=== PATIENT | female | born 1940 | race Caucasian/White ===

== ENCOUNTER 2023-02-21 08:57 | Inpatient (IN) | payer MEDICARE ==
[~2023-02-21] VITALS: Ht 172.7 cm; Wt 80.0 kg
[~2023-02-21 08:57] MED LIST: ACET-1008 PO; AMLO5TAB PO; ATOR10TA70 PO; BUSP10TA11 PO; CHOL10008 PO; DEXT38GE12 PO; DOCU100C40 PO; DULO60CA59 PO; HYDR-3965 PO; HYDR-4069 PO; LABE100T8 PO; LACTC PO; LIDO1ADH78 TP
[2023-02-21 10:47] LABS: BASOPHILS % (AUTO) 0.2 % (0-1); EOSINOPHILS % (AUTO) 0.2 % (0-6); HEMATOCRIT 32.2 % (35.0-45.0); HEMOGLOBIN 10.7 g/dl (12.0-16.0); LYMPHOCYTES # (AUTO) 0.5 X10'3 (1.1-4.8); LYMPHOCYTES % (AUTO) 9.1 % (21-51); MEAN CORPUSCULAR HEMOGLOBIN 29.4 PG (27.0-31.0); MEAN CORPUSCULAR HGB CONC 33.2 g/dL (33.0-36.5); MEAN CORPUSCULAR VOLUME 88.3 FL (78-98); MONOCYTES # (AUTO) 0.6 X10'3 (0-0.9); NEUTROPHILS # (AUTO) 4.6 X10'3 (1.8-7.7); NEUTROPHILS % (AUTO) 80.5 % (42-75); PLATELET COUNT 213 X10'3 (140-440); RED BLOOD COUNT 3.64 X10'6 (4.20-5.60); RED CELL DISTRIBUTION WIDTH 14.8 % (11.5-14.5); WHITE BLOOD COUNT 5.7 X10'3 (4.5-11.0)
--- NOTE | 2023-02-21 10:55 | NUR ---
PT STATED SHE WANTED TO BECAUSE SHE DOESNT WANT TO GET COVID AND GIVE IT TO HER FAMILY. PT STATED EVERYONE AT HER HOME HAS COVID. PT STAFF REPORTS NO CURRENT COVID RESIDENTS AND STATED HER FACILITY HAS STARTED ROUTINE COVID TESTING ON ALL RESIDENTS.
[2023-02-21 11:03] LABS: ALANINE AMINOTRANSFERASE 21 U/L (12-78); ALBUMIN 3.5 G/DL (3.4-5.0); ALBUMIN/GLOBULIN RATIO 0.9 (1.1-1.5); ALKALINE PHOSPHATASE 90 IU/L (46-116); ANION GAP 7 (8-16); ASPARTATE AMINO TRANSFERASE 25 U/L (10-37); BILIRUBIN,TOTAL 0.2 MG/DL (0.1-1.0); BLOOD UREA NITROGEN 27 MG/DL (7-18); BUN/CREATININE RATIO 21.8 (10.0-20.0); CALCIUM 9.6 MG/DL (8.5-10.1); CHLORIDE 98 MMOL/L (99-107); CREATININE 1.24 MG/DL (0.40-0.90); GLUCOSE 353 MG/DL (70-104); POTASSIUM 3.8 MMOL/L (3.5-5.1); SODIUM 138 MMOL/L (135-145); TOTAL CARBON DIOXIDE 33.5 MMOL/L (24-32); TOTAL PROTEIN 7.2 G/DL (6.4-8.2); eCRCL 34 ML/MIN; eGFR 41 ML/MIN
--- NOTE | 2023-02-21 11:20 | NUR ---
SPOKE W/ PT NURSE [place] AT [facility].PT ON 2 LTRS O2 NC AT BASELINE. PER STAFF NURSE PT DEVELOPED COUGH TODAY AND THEY ALSO NOTICED RHONCHI ON RIGHT SIDE. ED MD NOTIFIED. RECEIVED VERBAL ORDER FOR CXR.
--- NOTE | 2023-02-21 11:22 | NUR ---
PT HAD NEG [facility] TEST AT [facility].
[2023-02-21 11:26] LABS: THYROID STIMULATING HORMONE 1.29 ulU/ml (0.34-4.50)
[2023-02-21 11:32] LABS: ETHANOL < 10 MG/DL (<10)
[2023-02-21 12:17] LABS: BILIRUBIN,URINE NEGATIVE (Neg); CLARITY,URINE CLOUDY (Clear); COLOR,URINE YELLOW (Yellow); GLUCOSE, URINE 500 mg/dl (Neg); KETONES,URINE NEGATIVE (Neg); LEUKOCYTE ESTERASE ,URINE MODERATE (Neg); NITRITES, URINE NEGATIVE (Neg); OCCULT BLOOD,URINE MODERATE (Neg); PROTEIN,URINE 30 mg/dl (Neg); UROBILINOGEN,URINE 0.2 E.U/dL (0.2-1.0)
[2023-02-21 12:20] LABS: UA COLLECTION TYPE STRAIGHT CATH
[2023-02-21 12:26] LABS: BACTERIA,URINE 2+ /HPF (Neg); MUCUS STRANDS NONE SEEN /LPF (Neg); SQUAMOUS EPITHELIAL CELL,UR MODERATE /LPF (FEW); WBC CLUMPS,URINE FEW /HPF (NEGATIVE); WBC,URINE TNTC /HPF (0-4)
[2023-02-21 12:30] LABS: URINE AMPHETAMINE SCREEN NEGATIVE (Neg); URINE BARBITUATE SCREEN NEGATIVE (Neg); URINE BENZODIAZEPINES SCREEN NEGATIVE (Neg); URINE CANNABINOID SCREEN NEGATIVE (Neg); URINE COCAINE SCREEN NEGATIVE (Neg); URINE METHADONE SCREEN NEGATIVE (Neg); URINE OPIATE SCREEN POSITIVE (Neg); URINE PHENCYCLIDINE SCREEN NEGATIVE (Neg)
[2023-02-21] MEDS ORDERED: levoFLOXACIN-Levaquin 500mg/D5 100 ML IV ONE (12:55)
[2023-02-21] MEDS ORDERED: normal saline 1000ML IV soln IVB ONE (12:55)
[2023-02-21] MEDS ORDERED: LANTUS SQ (13:23)
[2023-02-21] MEDS ORDERED: MELA1LIQ PO (13:23)
[2023-02-21] MEDS ORDERED: INSU100V9 SQ (13:24)
[2023-02-21] MEDS ORDERED: MELA3TAB39 PO (13:28)
[2023-02-21] MEDS ORDERED: IBUP-1984 PO (13:30)
[2023-02-21] MEDS ORDERED: POLY17PO26 PO (13:32)
[2023-02-21] MEDS ORDERED: QUET100T34 PO (13:33)
[2023-02-21] MEDS ORDERED: LOSA1TAB39 PO (13:34)
[2023-02-21] MEDS ORDERED: HYDROcodone/acetaminophen 5mg/325mg tablet PO PRN ×2 (13:50→18:25)
[2023-02-21] MEDS: normal saline 1000ml 1,000 ML IV SCH ×2 (13:50→23:50)
[2023-02-21] MEDS ORDERED: magnesium Cl slow-release 64mg tablet PO PRN (13:50)
[2023-02-21] MEDS ORDERED: ondansetron/PF 4mg/2ml inj IV PRN (13:50)
[2023-02-21] MEDS ORDERED: ondansetron 4mg rapidly disintigrating tab PO PRN (13:50)
[2023-02-21] MEDS ORDERED: bisacodyl 10mg suppository rectal RC PRN (13:50)
[2023-02-21] MEDS ORDERED: potassium Cl 20 mEq SR tablet PO PRN ×2 (13:50)
[2023-02-21] MEDS ORDERED: mag hydrox/Alum hydrox/simeth 30ml oral suspension PO PRN (13:50)
[2023-02-21] MEDS ORDERED: magnesium hydroxide 30ml (MOM) UD suspension PO PRN (13:50)
[2023-02-21] MEDS ORDERED: acetaminophen 325mg tablet PO PRN ×2 (13:50)
[2023-02-21] MEDS ORDERED: potassium Cl 40MEQ/1/2NS 520ml 520 ML IV PRN (13:50)
[2023-02-21] MEDS ORDERED: acetaminophen 650mg rectal suppository RC PRN (13:50)
[2023-02-21] MEDS ORDERED: magnesium 4gm in 100ml NS 100 ML IV PRN (13:50)
[2023-02-21] MEDS ORDERED: magnesium 2GM in 50ml NS 50 ML IV PRN (13:50)
[2023-02-21] MEDS ORDERED: VANCOmycin 2,000MG in NS 500ml IV soln IV ONE (14:30)
[2023-02-21] MEDS: HYDROcodone/acetaminophen 10/325mg tab PO PRN ×2 (14:43→19:02)
--- NOTE | 2023-02-21 14:50 | NUR ---
NORCO 10/325 MG PO ADMIN FOR PAIN 03/05 CHEST DISCOMFORT PT ENDORSED " THIS COUGH IS WHY MY CHEST HURTS ALL THE TIME"
[2023-02-21] MEDS: cefepime 1GM/NS ADD-VANTAGE 100 ML IV SCH (15:16)
[2023-02-21 16:59] LABS: MAGNESIUM 1.7 MG/DL (1.5-2.4)
--- NOTE | 2023-02-21 17:20 | NUR ---
BLOOD SUGAR CHECK RANDOMLY 190 AT PRESENT TIME. IV VANCO CONTINUES TO INFUSE NO RXTN NOTED
[2023-02-21] MEDS ORDERED: hydrALAZINE 25 MG tablet PO PRN (18:25)
[2023-02-21] MEDS: K and/or MAG REPLACEMENT MC SCH (20:00)
--- NOTE | 2023-02-21 20:15 | NUR ---
Primary RN relieved for lunch break. Patient resting comfortably in bed, no signs of distress. No needs at this time.
--- NOTE | 2023-02-21 21:19 | NUR ---
Call to Pharmacy regarding patient meds not in [facility], per Pharmacist they are "preparing lantus".
--- NOTE | 2023-02-21 21:35 | NUR ---
pATIENT BRIEF CHANGED, PERICARE COMPLETE, PURE WICK REINFORCED. PATIENT ON NEW LINENS AND PROVIDED WARM BALNKETS WELL PERSONAL BLANKET.
[2023-02-21] MEDS: docusate sod 100mg capsule PO SCH (21:36)
[2023-02-21] MEDS: quetiapine 100mg tablet PO SCH (21:36)
[2023-02-21] MEDS: atorvastatin 10mg tablet PO SCH (21:36)
[2023-02-21] MEDS: Melatonin 3mg tablet PO SCH (21:37)
[2023-02-21] MEDS: busPIRone 5mg tablet PO SCH (21:37)
[2023-02-21] MEDS: enoxaparin 40mg/0.4ml syringe SQ SCH (21:38)
[2023-02-21] MEDS: labetalol 100mg tablet PO SCH (21:45)
[2023-02-21] MEDS: insulin glargine (Lantus) pen - multi-dose SQ SCH (21:47)
--- NOTE | 2023-02-22 00:53 | NUR ---
requested iv meds to be given by rn
[2023-02-22] MEDS: cefepime 1GM/NS ADD-VANTAGE 100 ML IV SCH ×3 (02:03→20:47)
[2023-02-22] MEDS: HYDROcodone/acetaminophen 10/325mg tab PO PRN ×2 (04:18→10:33)
--- NOTE | 2023-02-22 05:56 | NUR ---
pull out own iv. iv was complete and intact md beaver
[2023-02-22 07:00] VITALS: BP 152/69; PULSE 71; RESP 22; TEMP 98.8; O2SAT 98
[2023-02-22 07:07] LABS: BASOPHILS % (AUTO) 0.2 % (0-1); EOSINOPHILS % (AUTO) 0.2 % (0-6); HEMATOCRIT 31.7 % (35.0-45.0); HEMOGLOBIN 10.6 g/dl (12.0-16.0); LYMPHOCYTES # (AUTO) 0.8 X10'3 (1.1-4.8); LYMPHOCYTES % (AUTO) 15.4 % (21-51); MEAN CORPUSCULAR HEMOGLOBIN 29.3 PG (27.0-31.0); MEAN CORPUSCULAR HGB CONC 33.4 g/dL (33.0-36.5); MEAN CORPUSCULAR VOLUME 87.7 FL (78-98); MONOCYTES # (AUTO) 0.7 X10'3 (0-0.9); MONOCYTES % (AUTO) 13.5 % (2-12); NEUTROPHILS # (AUTO) 3.7 X10'3 (1.8-7.7); NEUTROPHILS % (AUTO) 70.7 % (42-75); PLATELET COUNT 217 X10'3 (140-440); RED BLOOD COUNT 3.61 X10'6 (4.20-5.60); RED CELL DISTRIBUTION WIDTH 14.3 % (11.5-14.5); WHITE BLOOD COUNT 5.3 X10'3 (4.5-11.0)
--- NOTE | 2023-02-22 07:10 | NUR ---
Patient in room ED 15. I have received report from Stacy [facility] DIRECTOR and had the opportunity to ask questions and assume patient care.
--- NOTE | 2023-02-22 07:10 | NUR ---
report given to YANDEL Mckinnon, pt assigned room 3023 B, RN aware pt is already on hospital bed.
[2023-02-22 07:45] LABS: ALANINE AMINOTRANSFERASE 27 U/L (12-78); ALBUMIN 3.3 G/DL (3.4-5.0); ALBUMIN/GLOBULIN RATIO 0.9 (1.1-1.5); ALKALINE PHOSPHATASE 78 IU/L (46-116); ANION GAP 2 (8-16); ASPARTATE AMINO TRANSFERASE 24 U/L (10-37); BILIRUBIN,TOTAL 0.3 MG/DL (0.1-1.0); BLOOD UREA NITROGEN 18 MG/DL (7-18); BUN/CREATININE RATIO 19.1 (10.0-20.0); CALCIUM 9.5 MG/DL (8.5-10.1); CHLORIDE 98 MMOL/L (99-107); CREATININE 0.94 MG/DL (0.40-0.90); GLUCOSE 149 MG/DL (70-104); MAGNESIUM 1.5 MG/DL (1.5-2.4); POTASSIUM 3.6 MMOL/L (3.5-5.1); SODIUM 136 MMOL/L (135-145); TOTAL PROTEIN 7.1 G/DL (6.4-8.2); eCRCL 45 ML/MIN; eGFR 57 ML/MIN
[2023-02-22 08:00] VITALS: RESP 22; O2SAT 95
[2023-02-22] MEDS: K and/or MAG REPLACEMENT MC SCH ×2 (08:00→20:00)
[2023-02-22] MEDS: azithromycin/NS 500mg/250ml 250 ML IV SCH (08:07)
[2023-02-22] MEDS: LIDOcaine 5% patch TP SCH ×2 (08:08→20:08)
[2023-02-22] MEDS: insulin glargine (Lantus) pen - multi-dose SQ SCH ×2 (08:11→22:15)
[2023-02-22] MEDS: busPIRone 5mg tablet PO SCH ×3 (08:11→20:58)
[2023-02-22] MEDS: polyethylene glycol 3350 17gm powd pack PO SCH (08:12)
[2023-02-22] MEDS: docusate sod 100mg capsule PO SCH ×2 (08:12→20:48)
[2023-02-22] MEDS: quetiapine 100mg tablet PO SCH ×2 (08:13→21:08)
[2023-02-22] MEDS: duloxetine 30mg CAPSULE.DR PO SCH (08:13)
[2023-02-22] MEDS: HYDROchlorothiazide 25mg tablet PO SCH (08:13)
[2023-02-22] MEDS: amLODIPine 5mg tablet PO SCH (08:13)
[2023-02-22] MEDS: normal saline 1000ml 1,000 ML IV SCH ×2 (08:14→22:00)
[2023-02-22] MEDS: labetalol 100mg tablet PO SCH ×2 (08:14→21:08)
[2023-02-22] MEDS: losartan 50mg tablet PO SCH (08:14)
[2023-02-22 11:00] VITALS: BP 98/41; PULSE 69; RESP 27; TEMP 97.8; O2SAT 95
[2023-02-22] MEDS ORDERED: cefepime 1GM/NS ADD-VANTAGE 100 ML IV SCH (13:16)
[2023-02-22] MEDS ORDERED: VANCOMYCIN 750MG IV in NS 250 ML IV SCH (15:00)
[2023-02-22] MEDS ORDERED: vancomycin/NS 1 GM ADD-VANTAGE 250 ML X 1 DOSE IV SCH (15:00)
[2023-02-22 15:55] VITALS: BP 106/58; PULSE 86; RESP 18; TEMP 97.6; O2SAT 97
[2023-02-22 18:00] VITALS: BP 137/62; PULSE 68; RESP 20; TEMP 97.8; O2SAT 96
--- NOTE | 2023-02-22 18:49 | NUR ---
Problems reprioritized. Patient report given, questions answered & plan of care reviewed with Blanca HUMPHRIES.
[2023-02-22] MEDS: enoxaparin 40mg/0.4ml syringe SQ SCH (20:57)
[2023-02-22] MEDS: atorvastatin 10mg tablet PO SCH (20:58)
[2023-02-22] MEDS: Melatonin 3mg tablet PO SCH (21:08)
[2023-02-22 22:00] VITALS: BP 110/56; PULSE 62; RESP 24; TEMP 97; O2SAT 98
--- NOTE | 2023-02-22 22:00 | NUR ---
Blood sugar 60, patient asymptomatic. She said she didn't eat much for her dinner. Apple juice and yogurt given. Blood sugar checked at 2145 to be 140.
[2023-02-23 02:23] VITALS: BP 98/40; PULSE 52; RESP 28; TEMP 97.6; O2SAT 99
--- NOTE | 2023-02-23 06:13 | NUR ---
Patient report given, questions answered & plan of care reviewed with YANDEL Painter Addendum: 02/23/23 at 0620 by Blanca Herr RN Patient report given, questions answered & plan of care reviewed with YANDEL Mckinnon
[2023-02-23] MEDS ORDERED: DEXTROSE 15 GM of carb/4 tabs (each vial/BOTTLE has 4 tablets) PO PRN ×2 (06:35)
[2023-02-23] MEDS ORDERED: glucagon, human recombinant 1mg kit SUBCUT PRN (06:35)
[2023-02-23] MEDS ORDERED: dextrose 50%-water 50ml dispensing syringe IV PRN ×2 (06:35)
[2023-02-23] MEDS ORDERED: MESSAGE TO PHARMACY PO ONE (06:35)
--- NOTE | 2023-02-23 06:55 | NUR ---
Patient in room PCU 3023. I have received report from Blanca HUMPHRIES and had the opportunity to ask questions and assume patient care.
[2023-02-23 07:33] LABS: BASOPHILS % (AUTO) 0.2 % (0-1); EOSINOPHILS % (AUTO) 0.2 % (0-6); HEMATOCRIT 27.7 % (35.0-45.0); HEMOGLOBIN 9.1 g/dl (12.0-16.0); LYMPHOCYTES # (AUTO) 0.8 X10'3 (1.1-4.8); MEAN CORPUSCULAR HEMOGLOBIN 29.1 PG (27.0-31.0); MEAN CORPUSCULAR HGB CONC 32.9 g/dL (33.0-36.5); MEAN CORPUSCULAR VOLUME 88.3 FL (78-98); MEAN PLATELET VOLUME 7.2 FL (7.4-10.4); MONOCYTES # (AUTO) 0.6 X10'3 (0-0.9); NEUTROPHILS # (AUTO) 4.6 X10'3 (1.8-7.7); NEUTROPHILS % (AUTO) 76.6 % (42-75); PLATELET COUNT 187 X10'3 (140-440); RED BLOOD COUNT 3.14 X10'6 (4.20-5.60); RED CELL DISTRIBUTION WIDTH 14.5 % (11.5-14.5)
[2023-02-23 07:44] VITALS: BP 127/57; PULSE 61; RESP 27; TEMP 97.4; O2SAT 100
[2023-02-23] MEDS: duloxetine 30mg CAPSULE.DR PO SCH (07:49)
[2023-02-23] MEDS: polyethylene glycol 3350 17gm powd pack PO SCH (07:50)
[2023-02-23] MEDS: losartan 50mg tablet PO SCH (07:50)
[2023-02-23] MEDS: labetalol 100mg tablet PO SCH (07:50)
[2023-02-23] MEDS: LIDOcaine 5% patch TP SCH (07:51)
[2023-02-23] MEDS: quetiapine 100mg tablet PO SCH (07:51)
[2023-02-23] MEDS: amLODIPine 5mg tablet PO SCH (07:51)
[2023-02-23] MEDS: busPIRone 5mg tablet PO SCH ×2 (07:52→13:25)
[2023-02-23] MEDS: cefepime 1GM/NS ADD-VANTAGE 100 ML IV SCH (07:52)
[2023-02-23] MEDS: HYDROchlorothiazide 25mg tablet PO SCH (07:53)
[2023-02-23] MEDS: K and/or MAG REPLACEMENT MC SCH (08:00)
[2023-02-23] MEDS: insulin glargine (Lantus) pen - multi-dose SQ SCH (08:00)
[2023-02-23] MEDS: docusate sod 100mg capsule PO SCH (08:00)
[2023-02-23 08:10] LABS: ALANINE AMINOTRANSFERASE 22 U/L (12-78); ALBUMIN 2.8 G/DL (3.4-5.0); ALBUMIN/GLOBULIN RATIO 0.8 (1.1-1.5); ALKALINE PHOSPHATASE 70 IU/L (46-116); ANION GAP 5 (8-16); ASPARTATE AMINO TRANSFERASE 33 U/L (10-37); BILIRUBIN,TOTAL 0.3 MG/DL (0.1-1.0); BLOOD UREA NITROGEN 17 MG/DL (7-18); BUN/CREATININE RATIO 20.7 (10.0-20.0); CALCIUM 8.8 MG/DL (8.5-10.1); CHLORIDE 103 MMOL/L (99-107); CREATININE 0.82 MG/DL (0.40-0.90); GLUCOSE 50 MG/DL (70-104); MAGNESIUM 1.5 MG/DL (1.5-2.4); POTASSIUM 4.2 MMOL/L (3.5-5.1); SODIUM 139 MMOL/L (135-145); TOTAL CARBON DIOXIDE 30.6 MMOL/L (24-32); TOTAL PROTEIN 6.1 G/DL (6.4-8.2); eCRCL 52 ML/MIN; eGFR 66 ML/MIN
[2023-02-23] MEDS: azithromycin/NS 500mg/250ml 250 ML IV SCH (08:10)
[2023-02-23] MEDS: normal saline 1000ml 1,000 ML IV SCH (08:12)
[2023-02-23] MEDS ORDERED: vancomycin/NS 1 GM ADD-VANTAGE 250 ML IV SCH (09:00)
[2023-02-23 12:11] VITALS: BP 109/70; PULSE 58; RESP 14; TEMP 97.2; O2SAT 98
--- NOTE | 2023-02-23 12:17 | NUR ---
Pt refused afternoon accuchek.
--- NOTE | 2023-02-23 14:05 | NUR ---
I called pt's family to notify them of the transfer back to [place]. No one picked up the call and I left a voicemail. i will call back and try to discuss it with them personally. Contact information is Nella daughter [phone]
--- NOTE | 2023-02-23 14:51 | NUR ---
Pt was transferred back to [place] via [facility] gurney. IV discontinued. Tele leads removed. All belongings given to pt. VM was left with daughter to inform of discharge back to [place].
[2023-02-24] MEDS ORDERED: cefepime 1GM/NS ADD-VANTAGE 100 ML IV SCH (08:00)
[2023-02-24] MEDS ORDERED: VANCOMYCIN LEVEL IV ONE (20:30)
== END 2023-02-23 14:30 | DRG 177 ==
LOC: ER 08:58 → ED HOLD 14:03 → PCU 3S 02-22 07:26
PROVIDERS: ADMIT Family Medicine; ATTEND Family Medicine
DX: J69.0 Pneumonitis due to inhalation of food and vomit (principal); N17.0 Acute kidney failure with tubular necrosis; N39.0 Urinary tract infection, site not specified; J44.0 Chronic obstructive pulmonary disease with (acute) lower respiratory infection; J18.9 Pneumonia, unspecified organism; E78.00 Pure hypercholesterolemia, unspecified; F32.A Depression, unspecified; F43.20 Adjustment disorder, unspecified; G20 Parkinson's disease; G89.29 Other chronic pain; I12.9 Hypertensive chronic kidney disease with stage 1 through stage 4 chronic kidney disease, or unspecified chronic kidney disease; E11.22 Type 2 diabetes mellitus with diabetic chronic kidney disease; N18.9 Chronic kidney disease, unspecified; I48.91 Unspecified atrial fibrillation; J44.9 Chronic obstructive pulmonary disease, unspecified; Z63.4 Disappearance and death of family member; Z74.01 Bed confinement status; Z99.3 Dependence on wheelchair
CPT/HCPCS: 36415; 71045; 80053; 80305; 80320; 81001; 82948; 83605; 83735; 84443; 85025; 87040; 87081; 87088; 92508; 92616; 99285; C1758; G0378; J0456; J0692; J1650; J1815; J1956; J3370; J3490; J7030; J7040